=== PATIENT | female | born 1960 | race Caucasian/White ===

== ENCOUNTER 2017-02-23 09:11 | Day surgery (SDC) | payer BC ==
[~2017-02-23] VITALS: Ht 160 cm; Wt 92.0 kg
[~2017-02-23 09:11] MED LIST: ASPI-535 PO; LOSA50TA6 PO; METF500T4 PO; [UNRECOGNIZED DRUG - OTHER] PO
[2017-02-23 10:25] VITALS: Ht 160 cm; Wt 92.0 kg
[2017-02-23] MEDS ORDERED: RIVA20TA PO (10:30)
[2017-02-23] MEDS ORDERED: METF-730 PO (10:30)
[2017-02-23] MEDS ORDERED: SOT120 PO (10:30)
[2017-02-23] MEDS ORDERED: LIDOCAINE 2% (SDV) 5 ML INJ ONE (10:48)
[2017-02-23] MEDS ORDERED: PROPOFOL 40 ML ONE (10:48)
[2017-02-23 10:51] VITALS: BP 157/73; PULSE 62; RESP 20
[2017-02-23 11:35] VITALS: BP 134/66; PULSE 52; RESP 12
--- NOTE | 2017-03-19 14:03 | GILP ---
DATE OF PROCEDURE: 02/23/2017 NAME OF PROCEDURE: Colonoscopy. SURGEON: Estelita Liu MD PREOPERATIVE DIAGNOSIS: Positive occult blood in stool. POSTOPERATIVE DIAGNOSES 1. Colonoscopy all the way to the cecum. 2. Internal hemorrhoids. INDICATION FOR THE PROCEDURE: Ms. Johana Crespo is a 56-year-old female patient who was scheduled fo r colonoscopy for further evaluation of positive occult blood in stool. The procedure and possible complications were well explained to the patient, she understood and cons ented to the procedure. DESCRIPTION OF PROCEDURE: Under the influence of anesthesia, the colonoscope was carefully introduc ed in the rectum and under direct vision, it was advanced all the way to the cecum. FINDINGS: The patient had internal hemorrhoids. No colitis or neoplasm was identified. She tolerated the procedure very well and there was no complication from the procedure. At the end of the procedures, she was awake with stable vital signs and she was discharged home to the care of her family. IMPRESSION: 1. Colonoscopy all the way to the cecum. 2. Internal hemorrhoids. 3. No colitis or neoplasm was identified. PLAN: 1. High fiber diet. 2. Next screening colonoscopy in 10 years. Dictated By: ESTELITA SNEED/BEAN Conf#: [id number] DID#: [id number]
== END 2017-02-23 12:20 | disposition home or self-care (01) ==
LOC: GIL 09:11
PROVIDERS: ATTEND Internal Medicine Gastroenterology
DX: K92.1 Melena (principal); K64.8 Other hemorrhoids; E11.9 Type 2 diabetes mellitus without complications; I10 Essential (primary) hypertension; Z86.73 Personal history of transient ischemic attack (TIA), and cerebral infarction without residual deficits; I48.91 Unspecified atrial fibrillation
CPT/HCPCS: 45378; 82962; Z7610